=== PATIENT | female | born 1975 ===

== ENCOUNTER → 2017-11-28 | Outpatient (CLI) | payer BC | END | disposition home or self-care (01) | LOC: LAB EV 15:04 → LAB SHORT 15:04 | DX: J02.9 Acute pharyngitis, unspecified (principal) | CPT/HCPCS: 87070 ==

== ENCOUNTER 2023-06-27 08:21 | Day surgery (SDC) | payer OTHER ==
[2023-06-27] VITALS (13 sets, daily range): BP systolic 98–123; BP diastolic 51–79
[~2023-06-27] VITALS: Ht 165.1 cm; Wt 94.7 kg
[~2023-06-27 08:21] MED LIST: NAPR220 PO; OMEP20ER PO; Phentermine HCl30 MG PO
--- NOTE | 2023-06-27 09:03 | NUR ---
Ambulatory in Day Surgery. History, Chart, Medications and Allergies reviewed before start of procedure. Lungs clear T/O to Auscultation. Patient confirms NPO status and agrees with scheduled surgery. Pre-Op teaching done. Pt verbalizes understanding. Patient States Post-Procedure ride home has been arranged. PT BELONGINGS PLACED UNDERNEATH GURNEY FOR SAFEKEEPING. PT JEWELRY ON LEFT HAND TAPED.
[2023-06-27] MEDS ORDERED: HYDR1TAB94 PO (14:19)
[2023-06-27] MEDS ORDERED: MOTRIN IB200 MG PO (14:20)
[2023-06-27 15:06] LABS: BASOPHILS ABSOLUTE AUTO 0.03 K/mm3 (0.00-0.23); BASOPHILS PERCENT AUTO 0 % (0-2); EOSINOPHILS ABSOLUTE AUTO 0.01 K/mm3 (0.00-0.68); EOSINOPHILS PERCENT AUTO 0 % (0-6); Hematocrit 42.1 % (33.0-51.0); Hemoglobin 13.6 g/dL (11.5-16.0); IMMATURE GRAN ABSOLUTE AUTO 0.06 K/mm3 (0.00-0.10); IMMATURE GRAN PERCENT AUTO 0 % (0-1); LYMPHOCYTES ABSOLUTE AUTO 0.99 K/mm3 (0.84-5.20); LYMPHOCYTES PERCENT AUTO 7 % (21-46); MONOCYTES ABSOLUTE AUTO 0.26 K/mm3 (0.16-1.47); MONOCYTES PERCENT AUTO 2 % (4-13); Mean Corpuscular HGB 28.8 pg (26.0-34.0); Mean Corpuscular HGB Conc 32.3 g/dL (31.5-36.5); Mean Corpuscular Volume 89 fL (80-100); Mean Platelet Volume 10.6 fL (9.1-12.4); NEUTROPHILS ABSOLUTE AUTO 13.58 K/mm3 (1.96-9.15); NEUTROPHILS PERCENT AUTO 91 % (41-73); Platelet Count 203 K/mm3 (150-400); RDW Coefficient Variation 14.4 % (11.7-14.2); Red Blood Cell Count 4.73 M/mm3 (3.80-5.20); White Blood Cell Count 14.93 K/mm3 (4.00-11.30)
--- NOTE | 2023-06-27 16:11 | NUR ---
DISCHARGE SUMMARY PT A&OX4, VSS/RA, SHAI PO, VOIDING, PAIN MANAGED, AMB INDEPENDENTLY/DRESSED SELF, PACKING REMOVED, IV DC'D. DC INS PROVIDED. PT REP UNDERSTANDING THOSE INSTRUCTIONS. LEFT FLOOR VIA WC WITH EXHIBITIONS CURATOR TO GO HOME WITH FAMILY WITH ALL PERSONAL POSSESSIONS INCLUDING 1 NARC SCRIPT.
== END 2023-06-27 15:30 | disposition home or self-care (01) ==
LOC: ORSCMMR 08:21 → ORD 10:00 → SURS 13:22 → ORSCMMR 13:22 → SURS 15:30 → ORSCMMR 15:30
PROVIDERS: Obstetrics & Gynecology
PROC: 0UBC7ZX Excision of Cervix, Via Natural or Artificial Opening, Diagnostic (ICD-10-PCS; principal; 2023-06-27 10:00)
PROC: 0JQC0ZZ Repair Pelvic Region Subcutaneous Tissue and Fascia, Open Approach (ICD-10-PCS; principal; 2023-06-27 10:00)
DX: N81.11 Cystocele, midline (principal); N81.6 Rectocele; R87.611 Atypical squamous cells cannot exclude high grade squamous intraepithelial lesion on cytologic smear of cervix (ASC-H); R87.810 Cervical high risk human papillomavirus (HPV) DNA test positive; F17.210 Nicotine dependence, cigarettes, uncomplicated; K21.9 Gastro-esophageal reflux disease without esophagitis; Z79.899 Other long term (current) drug therapy; Z68.34 Body mass index [BMI] 34.0-34.9, adult
CPT/HCPCS: 36415; 85025; 88305; 88342; A9270; J1100; J1170; J1885; J2405; J2704; J3010; J7120